=== PATIENT | female | born 1970 | race Caucasian/White ===

== ENCOUNTER 2020-03-16 15:19 | Emergency (ER) | payer MEDICAID ==
[~2020-03-16] VITALS: Ht 160 cm; Wt 77.3 kg
[2020-03-16] MEDS ORDERED: clonazePAM 1mg tablet PO ONE (15:55)
[2020-03-16] MEDS ORDERED: CLON-527 PO (16:48)
[2020-03-16 17:23] VITALS: BP 113/83
== END 2020-03-16 17:24 | disposition home or self-care (01) ==
LOC: ER 15:20
DX: F41.9 Anxiety disorder, unspecified (principal); F41.0 Panic disorder [episodic paroxysmal anxiety]; Z88.8 Allergy status to other drugs, medicaments and biological substances; Z91.013 Allergy to seafood; Z88.2 Allergy status to sulfonamides; F43.10 Post-traumatic stress disorder, unspecified; Z91.018 Allergy to other foods; Z79.899 Other long term (current) drug therapy; X58.XXXA Exposure to other specified factors, initial encounter; Y93.89 Activity, other specified; Y92.89 Other specified places as the place of occurrence of the external cause; Y99.8 Other external cause status
CPT/HCPCS: 99283